=== PATIENT | male | born 1990 | race Caucasian/White ===

== ENCOUNTER 2023-11-01 04:00 | Inpatient (IN) | payer SELFPAY ==
[~2023-11-01] VITALS: Ht 180.3 cm; Wt 101.2 kg
[2023-11-01 04:45] LABS: BASOPHILS % 0.5 % (0.0-2.0); HEMOGLOBIN. 15.6 g/dL (14.0-18.0); LYMPHOCYTES % 43.9 % (20.0-50.0); MEAN CORPUSCULAR HEMOGLOBIN 30.9 pg (28.0-32.0); MEAN CORPUSCULAR HGB CONC 33.9 g/dL (31.0-37.0); MEAN CORPUSCULAR VOLUME 91.1 fL (80.0-94.0); MEAN PLATELET VOLUME 10.5 fl (7.4-10.4); MONOCYTES % 7.9 % (2.0-8.0); NEUTROPHILS % 46.7 % (40.0-76.0); PLATELET 179 x1000/uL (130-400); RED BLOOD CELL COUNT 5.05 mill/uL (4.7-6.1); RED CELL DISTRIBUTION WIDTH 13.4 % (11.6-14.6); WHITE BLOOD COUNT 5.5 x1000/uL (4.5-11.0)
[2023-11-01 04:50] LABS: CHLORIDE 106 mEq/L (98-107); SODIUM 138 mEq/L (136-145)
[2023-11-01 04:51] LABS: CALCIUM 9.6 mg/dL (8.7-10.4); CARBON DIOXIDE 27 mEq/L (21-32)
[2023-11-01 04:56] LABS: GLUCOSE 105 mg/dL (70-105); UREA NITROGEN BLOOD 12 mg/dL (9-23)
[2023-11-01 05:10] LABS: ETHANOL BLOOD < 10 mg/dL (<10); TROPONIN I HIGH SENSITIVITY < 4 ng/L (3.0-53)
[2023-11-01] MEDS: MORPHINE SULFATE 2 MG/ML INJ (NOT FOR IM USE) IV ONE (05:52)
[2023-11-01] MEDS: ASPIRIN 325MG EC TABLET PO ONE (05:52)
[2023-11-01 06:58] LABS: *AMPHETAMINES SCREEN URINE NEGATIVE (NEGATIVE); *BARBITURATES SCREEN URINE NEGATIVE (NEGATIVE); *BENZODIAZEPINES SCREEN URINE NEGATIVE (NEGATIVE); *COCAINE SCREEN URINE NEGATIVE (NEGATIVE); CANNABINOID URINE SCREEN NEGATIVE (NEGATIVE); ECSTASY MDMA SCREEN URINE NEGATIVE (NEGATIVE); METHADONE URINE SCREEN NEGATIVE (NEGATIVE); OPIATES URINE SCREEN NEGATIVE (NEGATIVE); PHENCYCLIDINE URINE SCREEN NEGATIVE (NEGATIVE)
[2023-11-01 07:08] LABS: ERYTHROCYTE SEDIMENTATION RATE 8 mm/hr (0-15)
[2023-11-01] MEDS ORDERED: IPRATROPIUM/ALBUTEROL 0.5-3(2.5)MG/3ML NEB HHN PRN (08:15)
[2023-11-01] MEDS ORDERED: DOCUSATE SODIUM 100MG CAPSULE PO PRN (08:15)
[2023-11-01] MEDS ORDERED: MAGNESIUM/ALUMINUM HYDROXIDE/SIMETHICONE 30ML UDC PO PRN (08:15)
[2023-11-01] MEDS ORDERED: ONDANSETRON HCL 4MG/2ML INJ IV PRN (08:15)
[2023-11-01] MEDS ORDERED: ACETAMINOPHEN 325MG TABLET PO PRN (08:15)
[2023-11-01] MEDS ORDERED: CLONIDINE 0.1MG TABLET PO PRN (08:15)
[2023-11-01] MEDS: ASPIRIN 81MG EC TABLET PO SCH (09:28)
[2023-11-01 09:48] LABS: TRIGLYCERIDE 74 mg/dL (0-150)
[2023-11-01 09:49] LABS: LDL CHOLESTEROL 111 mg/dL (5-100)
[2023-11-01 09:50] LABS: CHOLESTEROL 156 mg/dL (<200); HDL CHOLESTEROL 39 mg/dL (>55)
[2023-11-01 09:53] LABS: THYROID STIMULATING HORMONE 1.97 uIU/mL (0.55-4.78)
[2023-11-01 09:58] LABS: TROPONIN I HIGH SENSITIVITY < 4 ng/L (3.0-53)
[2023-11-01] MEDS: IBUPROFEN 600MG TABLET PO NR (14:51)
[2023-11-01 21:36] VITALS: BP 133/97; PULSE 66; RESP 14; TEMP 36.61404; O2SAT 98
[2023-11-01] MEDS: FAMOTIDINE 20MG TABLET PO SCH (22:42)
[2023-11-01] MEDS: COLCHICINE 0.6MG TABLET PO SCH (22:42)
[2023-11-01] MEDS: IBUPROFEN 600MG TABLET PO SCH (22:43)
[2023-11-01 22:47] VITALS: BP 131/97; PULSE 66; RESP 14; TEMP 36.6404
[2023-11-02] VITALS: BP 116/70; PULSE 53; RESP 16; TEMP 36.55848; O2SAT 94
[2023-11-02 04:00] VITALS: BP 106/63; PULSE 41; RESP 15; TEMP 36.3918; O2SAT 96
[2023-11-02 07:33] LABS: CHLORIDE 107 mEq/L (98-107); SODIUM 138 mEq/L (136-145)
[2023-11-02 07:34] LABS: CARBON DIOXIDE 24 mEq/L (21-32)
[2023-11-02 07:35] LABS: CALCIUM 9.3 mg/dL (8.7-10.4)
[2023-11-02 07:39] LABS: CREATININE 0.9 mg/dL (0.6-1.3); GLUCOSE 92 mg/dL (70-105); UREA NITROGEN BLOOD 14 mg/dL (9-23)
[2023-11-02 07:52] LABS: BASOPHILS % 0.5 % (0.0-2.0); EOSINOPHILS % 1.1 % (0.0-5.0); HEMATOCRIT. 46.3 % (42.0-52.0); HEMOGLOBIN. 15.3 g/dL (14.0-18.0); LYMPHOCYTES % 42.4 % (20.0-50.0); MEAN CORPUSCULAR HEMOGLOBIN 30.7 pg (28.0-32.0); MEAN CORPUSCULAR HGB CONC 33.1 g/dL (31.0-37.0); MEAN CORPUSCULAR VOLUME 92.6 fL (80.0-94.0); MEAN PLATELET VOLUME 10.5 fl (7.4-10.4); MONOCYTES % 9.3 % (2.0-8.0); NEUTROPHILS % 46.7 % (40.0-76.0); PLATELET 154 x1000/uL (130-400); RED CELL DISTRIBUTION WIDTH 13.6 % (11.6-14.6); WHITE BLOOD COUNT 5.6 x1000/uL (4.5-11.0)
[2023-11-02 07:56] LABS: HEPATITIS B SURFACE ANTIGEN NEGATIVE (Negative)
[2023-11-02 08:00] VITALS: BP 122/78; PULSE 55; RESP 14; TEMP 36.55848; O2SAT 98
[2023-11-02] MEDS: SODIUM CHLORIDE 0.9% 500 ML IV ONE (08:00)
[2023-11-02 08:17] LABS: HEPATITIS C AB NON REACTIVE (Neg) (Negative)
[2023-11-02] MEDS ORDERED: IBUP-2029 PO (11:45)
[2023-11-02 12:00] VITALS: BP 125/89; PULSE 66; RESP 21; TEMP 37.00296; O2SAT 98
[2023-11-02] MEDS ORDERED: COLC0.6C3 MT (13:04)
[2023-11-02 16:00] VITALS: BP 135/87; PULSE 65; RESP 20; TEMP 36.83628; O2SAT 100
[2023-11-02 16:07] VITALS: BP 133/87; PULSE 65; TEMP 98.3; O2SAT 100
[2023-11-03] MEDS ORDERED: COLCHICINE 0.6MG TABLET PO SCH (09:00)
== END 2023-11-02 16:05 | disposition home or self-care (01) | DRG 207 ==
LOC: ER 04:00 → 5WST 05:24 → 3WST 21:27
PROVIDERS: ADMIT Hospitalist; ATTEND Hospitalist
DX: I30.0 Acute nonspecific idiopathic pericarditis (principal); E78.5 Hyperlipidemia, unspecified; I10 Essential (primary) hypertension; R07.89 Other chest pain; Z79.82 Long term (current) use of aspirin; Z79.899 Other long term (current) drug therapy
CPT/HCPCS: 36415; 71045; 80048; 80061; 80305; 80320; 83880; 84443; 84484; 85025; 85379; 85651; 86705; 87340; 93005; 93306; 93970; 99285; J2270; G0480